=== PATIENT | male | born 1950 | race Caucasian/White ===

== ENCOUNTER 2017-07-02 19:44 | Inpatient (IN) | payer BC ==
[2017-07-02 22:28] LABS: URINE BLOOD (Dip) POC Negative (NEGATIVE); URINE GLUCOSE (Dip) POC Negative (NEGATIVE); URINE KETONES (Dip) POC Negative (NEGATIVE); URINE LEUKOCYTE EST (Dip) POC Negative (NEGATIVE); URINE NITRITE (Dip) POC Negative (NEGATIVE); URINE TOTAL PROTEIN POC Negative (NEGATIVE)
[2017-07-02 22:28] LABS: URINE PH (Dip) POC 5.5 (5.0-8.5)
[2017-07-02 23:22] LABS: ADD MAN DIFF? NO
[2017-07-02 23:24] LABS: ABNORMAL IP MESSAGE 1; BASOPHILS % 0.3 % (0.0-2.0); EOSINOPHILS # 0.1 10^3/ul (0.0-0.5); EOSINOPHILS % 1.1 % (0.0-7.0); HEMATOCRIT 31.1 % (42.0-52.0); LYMPHOCYTES # 0.4 10^3/ul (0.8-2.9); LYMPHOCYTES % 5.8 % (15.0-51.0); MEAN CORPUSCULAR HEMOGLOBIN 29.5 pg (29.0-33.0); MEAN CORPUSCULAR HGB CONC 32.2 g/dl (32.0-37.0); MEAN CORPUSCULAR VOLUME 91.7 fl (82.0-101.0); MEAN PLATELET VOLUME 9.8 fl (7.4-10.4); MONOCYTE # 0.7 10^3/ul (0.3-0.9); MONOCYTES % 11.5 % (0.0-11.0); NEUTROPHIL # 5.1 10^3/ul (1.6-7.5); NEUTROPHILS % 80.8 % (39.0-77.0); PLATELET COUNT 256 10^3/UL (140-415); POSITIVE DIFF @See below; RED BLOOD COUNT 3.39 10^6/ul (4.70-6.10); RED CELL DISTRIBUTION WIDTH 15.4 % (11.5-14.5)
[2017-07-02 23:24] LABS: WHITE BLOOD COUNT 6.3 10^3/ul (4.8-10.8)
[2017-07-02 23:27] LABS: INR 1.09; PROTIME 14.2 Sec (11.9-14.9); PT RATIO 1.1
[2017-07-02 23:28] LABS: PARTIAL THROMBOPLASTIN TIME 38.3 Sec (25.0-35.0)
[2017-07-02 23:30] LABS: ALANINE AMINOTRANSFERASE 39 IU/L (13-69); ALBUMIN 2.1 g/dl (3.3-4.9); ALBUMIN/GLOBULIN RATIO 0.75; ALKALINE PHOSPHATASE 357 IU/L (42-121); ANION GAP 9 (8-16); ASPARTATE AMINO TRANSFERASE 33 IU/L (15-46); BILIRUBIN,INDIRECT 0.1 mg/dl (0-1.1); BILIRUBIN,TOTAL 0.1 mg/dl (0.2-1.3); BLOOD UREA NITROGEN 10 mg/dl (7-20); CARBON DIOXIDE 28 mmol/L (21-31); CHLORIDE 107 mmol/L (97-110); CREATININE 0.65 mg/dl (0.61-1.24); GLUCOSE 172 mg/dl (70-220); POTASSIUM 4.8 mmol/L (3.5-5.1); SODIUM 139 mmol/L (135-144); TOTAL PROTEIN 4.9 g/dl (6.1-8.1)
[2017-07-02 23:42] LABS: B-TYPE NATRIURETIC PEPTIDE 3040 PG/ML (0-125)
[2017-07-02 23:46] LABS: TROPONIN-I < 0.012 ng/ml (0.00-0.12)
[2017-07-03] MEDS: FUROSEMIDE 20 MG INJ IV ×2 (01:19→11:59)
[2017-07-03] MEDS: HYDROCODONE/APAP (10/325) TAB PO (01:19)
[2017-07-03] MEDS: ENOXAPARIN 80 MG/0.8 ML SYG SC (01:19)
[2017-07-03] MEDS ORDERED: ALPRAZOLAM 0.5 MG TAB PO (03:30)
[2017-07-03] MEDS ORDERED: DEXTROSE 50% 50 ML SYRINGE IV ×2 (04:00)
[2017-07-03] MEDS ORDERED: GLUCOSE GEL 15 GRAM TUBE BUCCAL (04:00)
[2017-07-03] MEDS ORDERED: ONDANSETRON 4 MG INJ IV (04:00)
[2017-07-03] MEDS ORDERED: GLUCOSE GEL 15 GRAM TUBE PO ×2 (04:00)
[2017-07-03] MEDS ORDERED: ENOXAPARIN 100 MG/ML SYG SC (04:00)
[2017-07-03] MEDS ORDERED: GLUCAGON 1 MG INJ IM (04:00)
[2017-07-03] MEDS ORDERED: oxyCODONE 5 MG TAB PO (06:00)
[2017-07-03] MEDS ORDERED: PENDING SANTYL ORDER FOR WOUND CARE XX (06:30)
[2017-07-03] MEDS: PANTOPRAZOLE (EC) 40 MG TAB PO (06:42)
[2017-07-03] MEDS: HYDROmorphONE 2 MG TAB PO ×4 (06:42→23:30)
[2017-07-03 07:46] LABS: ANION GAP 8 (8-16); BLOOD UREA NITROGEN 10 mg/dl (7-20); CALCIUM 8.2 mg/dl (8.4-10.2); CARBON DIOXIDE 31 mmol/L (21-31); CHLORIDE 105 mmol/L (97-110); CREATININE 0.64 mg/dl (0.61-1.24); GLUCOSE 100 mg/dl (70-220); POTASSIUM 4.2 mmol/L (3.5-5.1); SODIUM 140 mmol/L (135-144)
[2017-07-03] MEDS: INSULIN ASPART [NOVOLOG] 3 ML PEN SC ×4 (07:55→21:00)
[2017-07-03 07:56] LABS: B-TYPE NATRIURETIC PEPTIDE 2870 PG/ML (0-125); TROPONIN-I 0.012 ng/ml (0.00-0.12)
[2017-07-03] MEDS: FINASTERIDE 5 MG TAB PO (08:27)
[2017-07-03] MEDS: ASPIRIN 81 MG TAB PO (08:28)
[2017-07-03] MEDS: AMLODIPINE 5 MG TAB PO (08:28)
[2017-07-03] MEDS: GLIMEPIRIDE 2 MG TAB PO (08:28)
[2017-07-03] MEDS: CLOPIDOGREL 75 MG TAB PO (08:28)
[2017-07-03] MEDS: BENAZEPRIL 10 MG TAB PO (08:29)
[2017-07-03] MEDS: BUPROPION (XL) 150 MG TAB PO (08:29)
[2017-07-03] MEDS ORDERED: BUPROPION (XL) 150 MG TAB PO (09:00)
[2017-07-03] MEDS ORDERED: FINASTERIDE 5 MG TAB PO (09:00)
[2017-07-03] MEDS: DIGOXIN 0.125 MG TAB PO (13:48)
[2017-07-03] MEDS: oxyCODONE 5 MG TAB PO (13:50)
[2017-07-03] MEDS: LORAZEPAM 1 MG TAB PO (18:16)
[2017-07-03] MEDS: ATORVASTATIN 10 MG TAB PO (20:48)
[2017-07-03] MEDS: SERTRALINE 50 MG TAB PO (20:48)
[2017-07-03] MEDS: ZOLPIDEM 5 MG TAB PO (23:30)
[2017-07-04] MEDS: PANTOPRAZOLE (EC) 40 MG TAB PO (06:39)
[2017-07-04] MEDS: HYDROmorphONE 2 MG TAB PO ×3 (06:39→17:24)
[2017-07-04 06:54] LABS: ANION GAP 9 (8-16); BLOOD UREA NITROGEN 11 mg/dl (7-20); CARBON DIOXIDE 32 mmol/L (21-31); CHLORIDE 102 mmol/L (97-110); CREATININE 0.58 mg/dl (0.61-1.24); GLUCOSE 120 mg/dl (70-220); MAGNESIUM 1.5 mg/dl (1.7-2.5); POTASSIUM 3.7 mmol/L (3.5-5.1); SODIUM 139 mmol/L (135-144)
[2017-07-04 06:59] LABS: B-TYPE NATRIURETIC PEPTIDE 3050 PG/ML (0-125)
[2017-07-04] MEDS: oxyCODONE 5 MG TAB PO ×2 (07:56→20:16)
[2017-07-04] MEDS: BENAZEPRIL 10 MG TAB PO (07:57)
[2017-07-04] MEDS: AMLODIPINE 5 MG TAB PO (07:58)
[2017-07-04] MEDS: FINASTERIDE 5 MG TAB PO (07:58)
[2017-07-04] MEDS: CLOPIDOGREL 75 MG TAB PO (07:58)
[2017-07-04] MEDS: RIVAROXABAN 15 MG TABLET PO ×2 (07:58→17:24)
[2017-07-04] MEDS: FUROSEMIDE 20 MG INJ IV (07:59)
[2017-07-04] MEDS: BUPROPION (XL) 150 MG TAB PO (07:59)
[2017-07-04] MEDS: GLIMEPIRIDE 2 MG TAB PO (07:59)
[2017-07-04] MEDS: INSULIN ASPART [NOVOLOG] 3 ML PEN SC ×4 (08:25→20:16)
[2017-07-04] MEDS ORDERED: ENOXAPARIN 80 MG/0.8 ML SYG SC (09:00)
[2017-07-04] MEDS: DIGOXIN 0.125 MG TAB PO (12:21)
[2017-07-04] MEDS: MAGNESIUM SULFATE 3 GM in DEXTROSE 5% 100 ML IVPB (12:22)
[2017-07-04 16:34] LABS: ADD MAN DIFF? NO
[2017-07-04 16:36] LABS: WHITE BLOOD COUNT 4.5 10^3/ul (4.8-10.8)
[2017-07-04 16:36] LABS: ABNORMAL IP MESSAGE 1; BASOPHILS % 0.4 % (0.0-2.0); EOSINOPHILS % 0.9 % (0.0-7.0); HEMATOCRIT 30.2 % (42.0-52.0); HEMOGLOBIN 9.9 g/dl (14.0-18.0); LYMPHOCYTES # 0.5 10^3/ul (0.8-2.9); MEAN CORPUSCULAR HEMOGLOBIN 29.5 pg (29.0-33.0); MEAN CORPUSCULAR HGB CONC 32.8 g/dl (32.0-37.0); MEAN CORPUSCULAR VOLUME 89.9 fl (82.0-101.0); MONOCYTE # 0.5 10^3/ul (0.3-0.9); MONOCYTES % 11.3 % (0.0-11.0); NEUTROPHIL # 3.5 10^3/ul (1.6-7.5); PLATELET COUNT 246 10^3/UL (140-415); POSITIVE DIFF @See below; RED BLOOD COUNT 3.36 10^6/ul (4.70-6.10)
[2017-07-04 17:14] LABS: ADD UMIC YES; UR ASCORBIC ACID NEGATIVE (NEGATIVE); UR BILIRUBIN (Dip) NEGATIVE (NEGATIVE); UR BLOOD (Dip) 3+ mg/dL (NEGATIVE); UR CLARITY CLEAR (CLEAR); UR COLOR STRAW (YELLOW); UR GLUCOSE (Dip) NEGATIVE (NEGATIVE); UR KETONES (Dip) NEGATIVE (NEGATIVE); UR LEUKOCYTE ESTERASE (Dip) NEGATIVE Leu/ul (NEGATIVE); UR NITRITE (Dip) NEGATIVE (NEGATIVE); UR RBC 39 /HPF (0-5); UR SPECIFIC GRAVITY (Dip) 1.004 (1.003-1.030); UR TOTAL PROTEIN (Dip) NEGATIVE (NEGATIVE); UR UROBILINOGEN (Dip) NEGATIVE (NEGATIVE); UR WBC 2 /HPF (0-5)
[2017-07-04] MEDS: DOCUSATE SODIUM 100 MG CAP PO (17:24)
[2017-07-04] MEDS: ATORVASTATIN 10 MG TAB PO (20:15)
[2017-07-04] MEDS: SERTRALINE 50 MG TAB PO (20:16)
[2017-07-04] MEDS: ZOLPIDEM 5 MG TAB PO (22:04)
[2017-07-05] MEDS: PANTOPRAZOLE (EC) 40 MG TAB PO (05:14)
[2017-07-05] MEDS: HYDROmorphONE 2 MG TAB PO ×4 (05:14→17:38)
[2017-07-05 06:21] LABS: ADD MAN DIFF? NO
[2017-07-05 06:33] LABS: MAGNESIUM 1.9 mg/dl (1.7-2.5)
[2017-07-05 06:33] LABS: PHOSPHORUS 3.9 mg/dl (2.5-4.9)
[2017-07-05 06:34] LABS: ANION GAP 7 (8-16); BLOOD UREA NITROGEN 8 mg/dl (7-20); CALCIUM 8.3 mg/dl (8.4-10.2); CARBON DIOXIDE 34 mmol/L (21-31); CHLORIDE 103 mmol/L (97-110); CREATININE 0.69 mg/dl (0.61-1.24); GLUCOSE 112 mg/dl (70-220); SODIUM 140 mmol/L (135-144)
[2017-07-05 06:40] LABS: ABNORMAL IP MESSAGE 1; BASOPHILS % 0.5 % (0.0-2.0); EOSINOPHILS % 0.8 % (0.0-7.0); HEMATOCRIT 31.1 % (42.0-52.0); HEMOGLOBIN 10.3 g/dl (14.0-18.0); LYMPHOCYTES # 0.5 10^3/ul (0.8-2.9); LYMPHOCYTES % 12.9 % (15.0-51.0); MEAN CORPUSCULAR HGB CONC 33.1 g/dl (32.0-37.0); MEAN CORPUSCULAR VOLUME 90.7 fl (82.0-101.0); MEAN PLATELET VOLUME 9.1 fl (7.4-10.4); MONOCYTE # 0.5 10^3/ul (0.3-0.9); MONOCYTES % 13.7 % (0.0-11.0); NEUTROPHIL # 2.7 10^3/ul (1.6-7.5); NEUTROPHILS % 71.8 % (39.0-77.0); PLATELET COUNT 243 10^3/UL (140-415); POSITIVE DIFF @See below; RED BLOOD COUNT 3.43 10^6/ul (4.70-6.10); RED CELL DISTRIBUTION WIDTH 14.9 % (11.5-14.5)
[2017-07-05 06:40] LABS: WHITE BLOOD COUNT 3.7 10^3/ul (4.8-10.8)
[2017-07-05] MEDS: INSULIN ASPART [NOVOLOG] 3 ML PEN SC ×3 (07:55→17:40)
[2017-07-05] MEDS: GLIMEPIRIDE 2 MG TAB PO (07:55)
[2017-07-05] MEDS: CLOPIDOGREL 75 MG TAB PO (09:02)
[2017-07-05] MEDS: BUPROPION (XL) 150 MG TAB PO (09:03)
[2017-07-05] MEDS: DOCUSATE SODIUM 100 MG CAP PO (09:03)
[2017-07-05] MEDS: BENAZEPRIL 10 MG TAB PO (09:04)
[2017-07-05] MEDS: AMLODIPINE 5 MG TAB PO (09:05)
[2017-07-05] MEDS: RIVAROXABAN 15 MG TABLET PO ×2 (09:05→17:38)
[2017-07-05] MEDS: FINASTERIDE 5 MG TAB PO (09:07)
[2017-07-05] MEDS: FUROSEMIDE 20 MG TAB PO (09:13)
[2017-07-05] MEDS: DIGOXIN 0.125 MG TAB PO (12:13)
[2017-07-05 12:25] LABS: PROSTATE SPECIFIC ANTIGEN 6.7 ng/ml (0.0-4.0)
[2017-07-05] MEDS: oxyCODONE 5 MG TAB PO (15:11)
== END 2017-07-05 18:13 | disposition home or self-care (01) | DRG 292 ==
LOC: TEL 07-03 00:56 → E/R 19:44 → TEL 07-03 02:54
DX: I11.0 Hypertensive heart disease with heart failure (principal); I82.622 Acute embolism and thrombosis of deep veins of left upper extremity; C7A.00 Malignant carcinoid tumor of unspecified site; C7B.02 Secondary carcinoid tumors of liver; E83.42 Hypomagnesemia; E88.09 Other disorders of plasma-protein metabolism, not elsewhere classified; I50.23 Acute on chronic systolic (congestive) heart failure; I25.10 Atherosclerotic heart disease of native coronary artery without angina pectoris; E11.9 Type 2 diabetes mellitus without complications; Z95.810 Presence of automatic (implantable) cardiac defibrillator; Z95.5 Presence of coronary angioplasty implant and graft; Z79.84 Long term (current) use of oral hypoglycemic drugs
CPT/HCPCS: 36415; 70450; 71045; 71250; 74176; 80048; 80053; 81001; 81003; 82962; 83735; 83880; 84100; 84153; 84154; 84484; 85025; 85610; 85730; 93005; 93306; 93970; 93971; 96372; 96374; 97161; 97162; 99291-25